=== PATIENT | female | born 1990 | race Caucasian/White ===

== ENCOUNTER → 2018-07-24 | Outpatient (CLI) | payer MEDICAID ==
[2018-07-24 14:06] LABS: CHLAM PCR NOT DETECTED (NOT DETECT); GON PCR NOT DETECTED (NOT DETECT)
== END ==
LOC: OD 11:21
PROVIDERS: ATTEND Nurse Practitioner Family
DX: R30.0 Dysuria (principal)
CPT/HCPCS: 87086; 87491; 87591